=== PATIENT | male | born 1985 | race African-American/Black ===

== ENCOUNTER 2024-11-23 02:40 | Emergency (ER) | payer SELFPAY ==
[2024-11-23 02:42] VITALS: BP 124/78
[2024-11-23 09:24] LABS: % Basophils 0.4 % (0-2); % Eosinophils 1.6 % (0-6); % Immature Granulocytes 0.4 % (0-0.5); % Lymphocytes 18.4 % (20.5-51.1); % Neutrophils 67.2 % (42.2-75.2); Absolute Eosinophils 0.1 10^3/uL (0-0.7); Absolute Lymphocytes 1.5 10^3/uL (1.2-3.4); Absolute Neutrophils 5.4 10^3/uL (1.4-6.5); Hematocrit 35.8 % (39.0-52.0); Hemoglobin 11.7 g/dL (13.0-18.0); Mean Corp Hgb Conc. 32.7 g/dL (33.0-37.0); Mean Corpuscular Hgb 29.7 pg (27.0-31.0); Mean Corpuscular Volume 90.9 fL (80.0-94.0); Mean Platelet Volume 10.3 fL (7.4-10.4); Nucleated Red Blood Cells % 0 % (-); Platelet Count 235 10^3/uL (130-400); Red Blood Cell Count 3.94 10^6/uL (4.70-6.10); Red Cell Dist. Width 13.3 % (11.5-14.5)
[2024-11-23 09:41] LABS: ALT (SGPT) 15 U/L (0-50); AST (SGOT) 23 U/L (17-59); Alkaline Phosphatase 72 U/L (38-126); Blood Urea Nitrogen 13 mg/dl (9-20); Calcium 9.3 mg/dl (8.4-10.2); Carbon Dioxide 28 mmol/L (22-30); Chloride 100 mmol/L (98-107); Glucose 132 mg/dl (70-99); Potassium 4.1 mmol/L (3.5-5.1); Sodium 137 mmol/L (135-145); Total Bilirubin 0.7 mg/dl (0.2-1.3); Total Protein 7.2 g/dl (6.3-8.2); eGFR > 60.00
[2024-11-23 10:29] LABS: Urine Albumin Negative (Neg - Trace); Urine Bilirubin Negative (Negative); Urine Character Clear (Clear); Urine Color Yellow; Urine Glucose Negative (Negative); Urine Ketone Negative (Negative); Urine Leukocyte Negative (Negative); Urine Nitrite Negative (Negative); Urine Occult Blood Negative (Negative); Urine Urobilinogen Negative (Neg - 1+)
--- NOTE | 2024-11-23 10:47 | ED.GENMED ---
Addendum entered and electronically signed by Cecil Chavez Jr., PA-C 11/23/24 12:26:
Update 1200: Patient was assessed by the hospitalist. He told the hospital that he did not want to stay for further treatment. I then reassessed the again explained to him that he has something called osteomyelitis which could result in losing his
foot or becoming systemically significantly ill or even . He demonstrated understanding of this but claims that he was simply looking for food today and would like to leave. He claims that he does live in [place] near [place] and will
follow-up with [place]. It was explained to him that it is not appropriate to have this treated as an outpatient but he otherwise demonstrated understanding of this and still would like to leave. He was given food he also was seen by case
management they gave him information for food resources moving forward.
Original Note:
History of Present Illness
General
Chief Complaint: Extremity Pain (non-traumatic)
Source: patient and ambulance crew
Exam Limitations: other
Time Seen by Provider: 11/23/24 07:48
Nursing documentation reviewed up to this point in time: agreed with
History of Present Illness
History of Present Illness:
39-year-old male with unclear medical and psychiatric history presenting to the emergency department via EMS from while complaining of foot pain. Patient at this point only complaining of foot discomfort denies any specific chest pain shortness of
breath nausea vomiting numbness weakness. He claims he is also hungry would like food. When asked if he sleeps outside he says sometimes. He denies any medical history. Does not seem to be reliable historian
Review of Systems
Review of Systems
Allergies reviewed?: Yes
All Other Systems: ROS reviewed and negative except as documented in HPI and ROS
Phy Exam
Physical Exam
Physical Exam:
GENERAL: Alert , in no apparent distress
EYE: pupils equal and reactive
NECK: Supple, no significant adenopathy.
ENT: o/p clr, mmm.
CARDIAC: Regular rate and rhythm .
LUNGS: Clear breath sounds bilaterally, no acute respiratory distress, no wheezes/rales/rhonchi
ABDOMEN: Soft, without focal tenderness, no r/g, no cvat
NEUROLOGICAL: Alert and oriented, no focal neuro deficits
SKIN: Warm and dry, skin intact.
MUSCULOSKELETAL: Scattered throughout the distal toes bilaterally on the dorsal aspect. Mainly to the left second and third toes roughly 1 cm in diameter each as well as to the right foot mainly on the second toe. No edema, well perfused.
PSYCH: Normal and appropriate interaction.
Ulcers
Course
Orders/Labs/Results
Orders:
Orders
11/23/24 08:14
Miscellaneous Order As Directed
Miscellaneous order: food/drink
CR Foot - Left 2 Views Urgent
Reason For Exam: sudheer tpain distal ulcers
CR Foot - Right 2 Views Urgent
Reason For Exam: foot josh ndistal ulcers
11/23/24 09:07
Crisis Consult Urgent
Reason for Consult: homeless/psych
11/23/24 09:16
CBC/With Diff [Complete Blood Count/With Diff] Urgent
CMP [Comprehensive Metabolic Panel] Urgent
11/23/24 10:12
Urinalysis Reflex To Culture Urgent
Date Specimen was Collected: 11/23/24
Time Specimen was Collected: 09:58
Abnormal Lab Results
11/23/24
09:16
RBC 3.94 L 10^6/uL
(4.70-6.10)
Hgb 11.7 L g/dL
(13.0-18.0)
Hct 35.8 L %
(39.0-52.0)
MCHC 32.7 L g/dL
(33.0-37.0)
Absolute Monos (auto) 1.0 H 10^3/uL
(0.1-0.6)
Lymphocytes % 18.4 L %
(20.5-51.1)
Monocytes % 12.0 H %
(1.7-9.3)
Glucose 132 H mg/dl
(70-99)
11/23/24 09:16
11/23/24 09:16
Vital Signs
Initial and Last Documented VS:
Initial Vital Signs
Temp Pulse Resp BP
99.2 F 108 24 124/78
11/23/24 02:42 11/23/24 02:42 11/23/24 02:42 11/23/24 02:42
Last Documented Vital Signs
Temp Pulse Resp BP
99.2 F 108 24 124/78
11/23/24 02:42 11/23/24 02:42 11/23/24 02:42 11/23/24 02:42
MDM/Problems Addressed
MDM/Problems Addressed:
39-year-old male presenting to the emergency department today with concerns of foot discomfort. Patient is homeless and has unclear medical history. He is unable to elaborate on his previous medical diagnoses. Labs without significant white
count. X-ray showing signs of acute osteomyelitis. Plan to admit for further assessment of this. In no distress throughout ER stay.
*Critical Care Note
Total Time (30-74mins, 75-104mins- exclusive of procedures): Not Applicable
ED Attending Note
-
Portions of this chart may have been created with voice recognition software.� Occasional wrong word or��sound alike� substitutions may have occurred due to the inherent limitations of voice recognition software.
Discharge Plan
Departure
Patient Disposition: Admit
Date of Disposition: 11/23/24
Time of Disposition: 10:50
Admit to: Med/Surg
Admit to doctor: Estrada
Presentation/result/management discussed w/ accepting MD/DO: Hospitalist
Patient with high blood pressure during this ER visit?: No
Condition: Good
Covid-19: Not Applicable
Discharge Problem:
Osteomyelitis
Interventions
Interventions:
*Risk Screen - Suicide Last Done: 11/23/24 08:51
*General Assessment Last Done: 11/23/24 08:49
*Neglect/Abuse Screening Last Done: 11/23/24 08:51
*ED COVID-19 Vaccine History Last Done: 11/23/24 08:51
ED-Skin Assessment Last Done: 11/23/24 08:50
ED-Musculoskeletal Assessment Last Done: 11/23/24 08:50
Discharge Date and Time
Print Language: PASHTO
--- NOTE | 2024-11-23 12:38 | CM ---
Addendum entered by Ling Patiño 11/23/24 15:21:
Lyft requested again
Pt transported by lunch truck driver to [facility]
Addendum entered by Linglou Patiño 11/23/24 14:37:
CM asked to assist with skilled nursing
[facility] closed tonight
Bed available at [facility]
Pt in agreement and has ID for background check
Lyft arranged- lunch truck driver refused to transport on arrival
CM to continue to try to obtain transportation to skilled nursing
Original Note:
ED CM consult for food insecurity
Pt refusing admission and will be leaving AMA
Bedside meeting with pt- pt is homeless
Provided [employer] info, homeless drop in center and food pantry info
Pt provided food in ED
== END 2024-11-23 12:55 | disposition home or self-care (01) ==
LOC: EMR 02:40
PROVIDERS: Physician Assistant; EMERGENCY PHYSICIAN Emergency Medicine
DX: M86.9 Osteomyelitis, unspecified (principal); M79.672 Pain in left foot; M79.671 Pain in right foot; Z59.00 Homelessness unspecified
CPT/HCPCS: 99284; 73620; 80053; 81003; 85025